=== PATIENT | female | born 1980 | race Caucasian/White ===

== ENCOUNTER 2018-04-29 15:50 | Inpatient (IN) ==
[2018-04-29] MEDS ORDERED: Sod Chloride 0.9% Inj 1,000 ML IV.SIG ONE (16:21)
[2018-04-29] MEDS ORDERED: Morphine Inj 4 MG/ML Vial IV.PUSH ONE (16:21)
[2018-04-29] MEDS ORDERED: Ketorolac Inj 30 MG/ML (IVP) Vial IV.PUSH ONE (16:24)
[2018-04-29] MEDS ORDERED: Levofloxacin 500 mg Premix Inj 500 MG/100 ML PIGGYBACK IV.SIG ONE (16:29)
--- NOTE | 2018-04-29 16:29 | ED ---
HPI General Chief complaint: Urogenital-Female Stated complaint: L lower back pain Time Seen by Provider: 04/29/18 16:19 Source: patient Mode of arrival: ambulatory Limitations: no limitations History of Present Illness MD Complaint: Reports dysuria Onset (ago): day(s) Female Urogenital Radiation: Reports L Flank Severity: moderate Quality: Dull Duration: constant Relieving factors: none Exacerbating factors: none Urinary symptoms: Reports Dysuria and Flank Pain Vaginal discharge: Denies blood Sexual activity: Yes Patient : No Date of Last Menstrual Period: 04/27/18 Associated symptoms: Reports denies other symptoms and fever/chills; Denies vaginal discharge, vaginal bleeding, abdominal pain and headaches Related Data Home Medications Medication Instructions Recorded Confirmed albuterol sulfate 1 puff INHALATION Q4-6H PRN 04/29/18 04/29/18 albuterol sulfate 1.25 mg INHALATION Q4-6H PRN 04/29/18 04/29/18 alprazolam [Xanax] 0.25 mg PO HS 04/29/18 04/29/18 budesonide-formoterol [Symbicort] 2 puff INHALATION Q12H PRN 04/29/18 04/29/18 Allergies Allergy/AdvReac Type Severity Reaction Status Date / Time hydrocodone AdvReac Severe Nausea/Vomi Verified 04/29/18 15:58 ting ONIONS Allergy Severe SOB Uncoded 04/04/06 15:39 Review of Systems ROS: all other systems reviewed are negative PMFSH Medical History Medical History Anxiety (Acute) Asthma (Acute) History of renal stone (Acute) Insomnia (Acute) Surgical History Surgical History Hx of section (Acute) Hx of tubal ligation (Acute) Social History Social History Substance History: No History of Abuse Second Hand Smoke Exposure: No Smoking Status: Heavy tobacco smoker Tobacco Type: Cigarettes How Often Do You Have a Drink Containing Alcohol: Never Recent Travel in [place] within the Last 8 Weeks: No Recent Out of Country Travel within the Last 8 Weeks: No Immunization History Tetanus Immunization: <5 Years Exam Narrative Exam Narrative: Looks sick EOMI, anicteric NO JVD NON LABORED RESPIRATIONS, equal bilateral Tachycardia/pain SOFT NON TENDER No pulsatile mass No rebound or guarding CVA tenderness left PELVIS STABLE FROM EXTREMITIES NO LOWER EXTREMITY EDEMA FACIAL SYMMETRY STEADY GAIT, CLEAR SENTENCES AAOX3 Course Reevaluation(s) Reevaluation #1: No signs of acute airway compromise Updated father bedside Blood pressure trended down after morphine, blood cultures drawn jory nguyễn md to admit/assume care Time: 17:29 Initial Documented Vital Signs Temperature 99.7 F H 04/29/18 15:53 Pulse Rate 122 H 04/29/18 15:53 Respiratory Rate 18 04/29/18 15:53 Blood Pressure 106/62 04/29/18 15:53 Pulse Oximetry 99 04/29/18 15:53 Last Documented Vital Signs Temperature 99.7 F H 04/29/18 15:53 Pulse Rate 115 H 04/29/18 17:10 Respiratory Rate 16 04/29/18 17:14 Blood Pressure 87/56 L 04/29/18 17:10 Pulse Oximetry 97 04/29/18 17:10 Critical Care Time Critical Care Time: Yes Total Critical Care Time: 35 Attestation: Aggregate critical care time was 35 minutes. Time to perform other separately billable procedures was not included in the critical care time. My time did not include minutes spent treating any other patients simultaneously or on activities that did not directly contribute to the patient's treatment. The services I provided to this patient were to treat and/or prevent clinically significant deterioration that could result in: [Pain, disability, ] I provided critical care services requiring my management, as noted below: Chart data review, documentation time, medication orders and management, vital sign assessments/reviewing monitor data, ordering and reviewing lab tests, ordering and interpreting/reviewing x-rays and diagnostic studies, care of the patient and discussion of the patient with the admitting physicians. Medical Decision Making [facility] Narrative Medical Screen Exam Complete: Yes Emergency Medical Condition: Yes Lab Data Result diagrams: 04/29/18 16:35 04/29/18 16:35 POC Results POC Urine Results Negative Lab Results 04/29/18 04/29/18 04/29/18 Range/Units 16:35 16:35 16:35 CBC w Diff Slide review pending WBC 21.4 H (4.0-11.0) th/mm3 RBC 3.95 L (4.00-5.30) mil/mm3 Hgb 11.7 (11.6-15.3) gm/dL Hct 34.8 L (35.0-46.0) % MCV 88.3 (80.0-100.0) fL MCH 29.8 (27.0-34.0) pg MCHC 33.7 (32.0-36.0) % RDW 13.0 (11.6-17.2) % Plt Count 318 (150-450) th/mm3 MPV 7.8 (7.0-11.0) fL Neut % (Auto) 79.3 H (16.0-70.0) % Lymph % (Auto) 10.8 (9.0-44.0) % [place] % (Auto) 7.6 (0.0-8.0) % Eos % (Auto) 0.1 (0.0-4.0) % Baso % (Auto) 2.2 H (0.0-2.0) % Neut # (Auto) 17.0 H (1.8-7.7) th/mm3 Lymph # (Auto) 2.3 (1.0-4.8) th/mm3 [place] # (Auto) 1.6 H (0.0-0.9) th/mm3 Eos # (Auto) 0.0 (0.0-0.4) th/mm3 Baso # (Auto) 0.5 H (0.0-0.2) th/mm3 WBC Differential . Diff Scan Auto diff confirmed Differential Comment . Sodium 133 L (136-145) meq/L Potassium 3.8 (3.5-5.1) meq/L Chloride 101 (98-107) meq/L Carbon Dioxide 26.3 (21.0-32.0) meq/L Anion Gap 6 (5-15) meq/L BUN 11 (7-18) mg/dL Creatinine 1.00 (0.50-1.00) mg/dL Estimated GFR 62 L (>89) mL/min Random Glucose 120 H (74-106) mg/dL Calcium 8.0 L (8.5-10.1) mg/dL Total Bilirubin 0.4 (0.2-1.0) mg/dL AST 13 L (15-37) U/L ALT 15 (10-53) U/L Alkaline Phosphatase 85 (45-117) U/L Total Protein 6.6 (6.4-8.2) g/dL Albumin 2.9 L (3.4-5.0) g/dL Lipase 106 (73-393) U/L Ur Collection Type Clean catch Urine Color Yellow (Yellw/Straw) Urine Clarity Slightly cloudy (Clear) Urine pH 6.0 (5.0-8.5) Ur Specific [place] 1.015 (1.002-1.035) Urine Protein 30 H (Neg-Trace) mg/dL Urine Glucose (UA) 100 H (Negative) mg/dL Urine Ketones Negative (Negative) mg/dL Urine Occult Blood Large H (Negative) Urine Nitrate Positive H (Negative) Urine Bilirubin Negative (Negative) Urine Urobilinogen 0.2 (Less than 2) mg/dL Ur Leukocyte Esterase Moderate H (Negative) Urine RBC 4-15 H (0-3) /hpf Urine WBC 51-189 H (0-5) /hpf Urine WBC Clumps Few H (None) Ur Squamous Epith Cells 0-5 (0-5) /hpf Urine Bacteria Many H (None) /hpf Micro UA Comment Culture indicated Ur Microscopic Review Microscopic reviewed Urine Culture Comments Culture indicated Imaging Data Radiologist's impression: Abdomen/Pelvis CT 04/29/18 16:21 CONCLUSION: 1. Mild obstructive uropathy on the left leading to a distal left ureteral calculus measuring 2 mm. 2. Several punctate nonobstructing right-sided renal calculi. Discharge Plan Discharge Disposition Patient Disposition: ED Admit(ED Internal Use Only) Discharge Condition Condition: Stable Discharge Order Discharge Orders: ED Use Only Admit Order (Routine); Ordered 04/29/18 Ordered By: Yovanny Oliveros Discharge Details Diagnosis: Pyelonephritis Physicians Team ED Provider: Yovanny Oliveros Primary Care Provider: Caleb Perez Rxs /Orders / Referrals /Forms Prescriptions: No Action albuterol sulfate 1.25 mg/3 mL Solution For Nebulization 1.25 mg INHALATION Q4-6H PRN (Reason: Shortness Of Breath) RF: 0 alprazolam [Xanax] 0.25 mg Tablet 0.25 mg PO HS RF: 0 albuterol sulfate 90 mcg/actuation Hfa Aerosol Inhaler 1 puff INHALATION Q4-6H PRN (Reason: Shortness Of Breath) RF: 0 budesonide-formoterol [Symbicort] 80-4.5 mcg/actuation Hfa Aerosol Inhaler 2 puff INHALATION Q12H PRN (Reason: Shortness Of Breath) RF: 0 Discharge Interventions Interventions: Vital Signs Last Done: 04/29/18 17:10 Status ED Status: Ready for Discharge
[2018-04-29 16:42] LABS: Bilirubin,Urine Negative (Negative); Clarity,Urine Slightly Cloudy (Clear); Color,Urine Yellow (Yellw/Straw); Glucose,Urine (UA) 100 mg/dL (Negative); Leukocyte Esterase,Urine Moderate (Negative); Nitrite,Urine Positive (Negative); Specific Gravity,Urine 1.015 (1.002-1.035); Urobilinogen,Urine 0.2 mg/dL (Less than 2)
[2018-04-29 16:43] LABS: Baso # (Auto) 0.5 th/mm3 (0.0-0.2); Baso % (Auto) 2.2 % (0.0-2.0); Eos % (Auto) 0.1 % (0.0-4.0); Hematocrit 34.8 % (35.0-46.0); Hemoglobin 11.7 gm/dL (11.6-15.3); Lymph # (Auto) 2.3 th/mm3 (1.0-4.8); Lymph % (Auto) 10.8 % (9.0-44.0); Mean Corpuscular HGB Conc 33.7 % (32.0-36.0); Mean Corpuscular Hemoglobin 29.8 pg (27.0-34.0); Mean Corpuscular Volume 88.3 fL (80.0-100.0); Mean Platelet Volume 7.8 fL (7.0-11.0); Mono # (Auto) 1.6 th/mm3 (0.0-0.9); Mono % (Auto) 7.6 % (0.0-8.0); Neut % (Auto) 79.3 % (16.0-70.0); Platelet Count 318 th/mm3 (150-450); Red Blood Count 3.95 mil/mm3 (4.00-5.30); White Blood Count 21.4 th/mm3 (4.0-11.0)
[2018-04-29 16:47] LABS: Bacteria,Urine Many /hpf; Squamous Epithelial Cell,Urine 0-5 /hpf (0-5); WBC,Urine 51-189 /hpf (0-5)
[2018-04-29 16:51] LABS: Chloride 101 meq/L (98-107); Potassium 3.8 meq/L (3.5-5.1); Sodium 133 meq/L (136-145)
[2018-04-29 16:55] LABS: Albumin 2.9 g/dL (3.4-5.0); Anion Gap 6 meq/L (5-15); Blood Urea Nitrogen 11 mg/dL (7-18); Carbon Dioxide 26.3 meq/L (21.0-32.0); Glucose,Random 120 mg/dL (74-106); Lipase 106 U/L (73-393)
[2018-04-29 16:58] LABS: Alanine Aminotransferase 15 U/L (10-53); Aspartate Aminotransferase 13 U/L (15-37); Glomerular Filtration Rate 62 mL/min (>89)
[2018-04-29 16:59] LABS: Total Protein 6.6 g/dL (6.4-8.2)
[2018-04-29 17:01] LABS: Alkaline Phosphatase 85 U/L (45-117)
--- NOTE | 2018-04-29 17:06 | CT ---
EXAM DATE: 04/29/2018 5:01 PM EST AGE/SEX: 37 years / Female INDICATIONS: Left flank pain with dysuria 3 days CLINICAL DATA: This is the patient's initial encounter. Patient reports that signs and symptoms have been present for 3 days and indicates a pain score of 7/10. MEDICAL/SURGICAL HISTORY: Renal calculi. Asthma. section. Tubal ligation. RADIATION DOSE: 4.15 CTDI (mGy) COMPARISON: [facility], CT ABDOMEN & PELVIS W CONTRAST, 06/07/2011. . TECHNIQUE: Multiple contiguous axial images were obtained through the abdomen. Images were obtained using multiple row detector helical technique. Using automated exposure control and adjustment of the mA and/or kV according to patient size, radiation dose was kept as low as reasonably achievable to o btain optimal diagnostic quality images. DICOM format image data is available electronically for rev iew and comparison. FINDINGS: Lower Lungs: The visualized lower lungs are clear. Liver: The liver has a homogeneous density without space-occupying lesion. There is no dilation of th e biliary tree. Spleen: Homogeneous density without enlargement. Pancreas: Unremarkable without mass or calcification. Kidneys: Normal in size and shape. No evidence of mass or hydronephrosis on the right. Several punct ate nonobstructing right-sided renal calculi measures 1 to 2 mm in the lower pole. Mild hydronephrosi s and hydroureter on the left leading to a distal left ureteral calculus measuring 2 mm. Adrenal Glands: Unremarkable. Aorta: The aorta and proximal iliac vessels are grossly unremarkable without aneurysmal dilation. Bowel/Mesentery: The bowel loops are grossly unremarkable. The cecum and sigmoid colon have a normal configuration. Abdominal Wall: Intact. Retroperitoneum: No evidence of adenopathy in the retrocrural, para-aortic, or deep pelvic regions. Bladder: Contours are smooth. Reproductive Organs: No abnormal masses or calcifications seen. Inguinal: The inguinal region is unremarkable without evidence of adenopathy. Bony Structures: Unremarkable. CONCLUSION: 1. Mild obstructive uropathy on the left leading to a distal left ureteral calculus measuring 2 mm. 2. Several punctate nonobstructing right-sided renal calculi. Electronically signed by: Remberto Whitney MD Board Certified Radiologist 04/29/2018 5:04 PM EST
[2018-04-29] MEDS ORDERED: Sod Chloride 0.9% Inj 1,000 ML IV.SIG SCH ×2 (17:15→19:00)
[2018-04-29] MEDS ORDERED: Acetaminophen 325 MG Tablet PO PRN (17:30)
[2018-04-29] MEDS ORDERED: Vancomycin Inj 1,000 MG in Sodium Chlor 0.9% Inj 250 ML IV.SIG SCH (17:39)
[2018-04-29] MEDS ORDERED: Vancomycin Consult Pharmacy OTHER PRN (18:00)
[2018-04-29] MEDS: Sod Chloride 0.9% Inj 1,000 ML IV.CONT SCH (18:17)
[2018-04-29] MEDS ORDERED: ALPRAZolam 0.25 MG Tablet PO PRN (19:16)
[2018-04-29] MEDS: Lactobacillus Acidophilus/L. Spores Tablet PO SCH (20:01)
[2018-04-29] MEDS: HYDROmorphone PF Inj 1 MG/ML Ampul IV.PUSH PRN (20:01)
[2018-04-29] MEDS: oxyCODONE/Acetaminophen 10/325 Tablet PO PRN (20:06)
[2018-04-29] MEDS: Vancomycin Inj 750 MG in Sodium Chlor 0.9% Inj 250 ML IV.SIG SCH (20:24)
[2018-04-30] MEDS ORDERED: Sod Chloride 0.9% Inj 1,000 ML IV.SIG ONE (00:03)
[2018-04-30] MEDS: oxyCODONE/Acetaminophen 10/325 Tablet PO PRN ×4 (00:11→18:09)
[2018-04-30] MEDS: HYDROmorphone PF Inj 1 MG/ML Ampul IV.PUSH PRN ×4 (02:19→20:11)
[2018-04-30] MEDS: Sod Chloride 0.9% Inj 1,000 ML IV.CONT SCH ×2 (04:49→15:38)
[2018-04-30 06:00] LABS: Baso % (Auto) 0.3 % (0.0-2.0); Eos % (Auto) 0.3 % (0.0-4.0); Hematocrit 29.8 % (35.0-46.0); Hemoglobin 10.1 gm/dL (11.6-15.3); Lymph % (Auto) 6.4 % (9.0-44.0); Mean Corpuscular HGB Conc 33.9 % (32.0-36.0); Mean Corpuscular Hemoglobin 29.8 pg (27.0-34.0); Mean Platelet Volume 7.5 fL (7.0-11.0); Mono # (Auto) 1.1 th/mm3 (0.0-0.9); Mono % (Auto) 7.5 % (0.0-8.0); Neut # (Auto) 13.1 th/mm3 (1.8-7.7); Neut % (Auto) 85.5 % (16.0-70.0); Platelet Count 262 th/mm3 (150-450); Red Blood Count 3.38 mil/mm3 (4.00-5.30); Red Cell Distribution Width 12.9 % (11.6-17.2); White Blood Count 15.2 th/mm3 (4.0-11.0)
[2018-04-30 06:25] LABS: Albumin 2.3 g/dL (3.4-5.0); Calcium 6.9 mg/dL (8.5-10.1); Carbon Dioxide 19.5 meq/L (21.0-32.0); Potassium 3.8 meq/L (3.5-5.1); Total Protein 5.4 g/dL (6.4-8.2)
[2018-04-30] MEDS: Lactobacillus Acidophilus/L. Spores Tablet PO SCH ×3 (08:39→18:09)
[2018-04-30] MEDS: Vancomycin Inj 750 MG in Sodium Chlor 0.9% Inj 250 ML IV.SIG SCH ×2 (09:24→20:12)
[2018-04-30] MEDS: Levofloxacin 500 mg Premix Inj 500 MG/100 ML PIGGYBACK IV.SIG SCH (17:00)
[2018-04-30] MEDS ORDERED: Budesonide-Formoterol 80/4.5 MCG 6.9 GM Inhaler INH PRN (19:41)
--- NOTE | 2018-04-30 19:43 | P.HPIM ---
History of Present Illness Primary Care Physician: Caleb Perez MD Chief Complaint: Pyelonephritis History of Present Illness: Mrs. Martinez is a 37-year-old female. She came into the hospital secondary to dysuria and flank pain. Findings at time of admit are leukocytosis, tachycardia, hypotension, and fever. She has a retained 2 mm kidney stone in the left ureter. Additionally she has evidence for pyelonephritis. Septic criteria are present and patient meets criteria for septic shock. Pressors are needed to maintain patient's blood pressures. No other complaints. She does not have recurrent problems with urinary tract infections. She does have a history of kidney stone. Other medical history includes anxiety and asthma. Inpatient Certification Inpatient Certification: I certify that the inpatient services were ordered in accordance with Medicare regulations governing the order. This includes certification that hospital inpatient services are reasonable and necessary and in the case of services not specified as inpatient-only under 42 CFR 419.22(n), that they are appropriately provided as inpatient services in accordance to with the 2-midnight benchmark under 43 CFR 412.3(e) Estimated Total Length of Stay (Days): 3 Plans for Post Hospital Care: Home Review of Systems Constitutional: No fevers, no chills no night sweats, no fatigue, no weakness Eyes: No eye pain, no blurry vision, no loss of vision ENT: No sore throat, no ear pain, no rhinorrhea Cardiovascular: No chest pain, no tachycardia, no palpitations, no syncope Respiratory: No wheezing, no cough, no shortness of breath Gastrointestinal: No abdominal pain, no black tarry stools, no bright red blood per rectum, no vomiting, no diarrhea Musculoskeletal: No joint pain, no muscle cramps, no stiffness, back pain Integumentary: No rash, no ulcers, no drainage Neurologic: No sensory loss, no loss of motor function, no dizziness Psychiatric: No behavioral changes, no hallucinations, no suicidal ideations Genitourinary: Dysuria PMFSH Medical History Medical History Anxiety (Acute) Asthma (Acute) History of renal stone (Acute) Insomnia (Acute) Surgical History Surgical History Hx of section (Acute) Hx of tubal ligation (Acute) Family History Family History Other Osteoarthritis Social History Social History Substance History: No History of Abuse Second Hand Smoke Exposure: No Smoking Status: Current every day smoker Tobacco Type: Cigarettes How Often Do You Have a Drink Containing Alcohol: Never Recent Travel in [facility] within the Last 8 Weeks: No Recent Out of Country Travel within the Last 8 Weeks: No Immunization History Tetanus Immunization: <5 Years Medications and Allergies Allergies Allergy/AdvReac Type Severity Reaction Status Date / Time hydrocodone AdvReac Severe Nausea/Vomi Verified 04/29/18 15:58 ting ONIONS Allergy Severe SOB Uncoded 04/04/06 15:39 Home Medications Medication Instructions Recorded Confirmed Type albuterol sulfate 1 puff INHALATION Q4-6H PRN 04/29/18 04/29/18 History albuterol sulfate 1.25 mg INHALATION Q4-6H PRN 04/29/18 04/29/18 History alprazolam [Xanax] 0.25 mg PO HS 04/29/18 04/29/18 History budesonide-formoterol [Symbicort] 2 puff INHALATION Q12H PRN 04/29/18 04/29/18 History Active Medications: Active Medications Acetaminophen (Tylenol) 650 mg PO Q4H PRN PRN Reason: Temp > 100.4 Last Admin: 04/30/18 05:00 Dose: 650 mg Al Hydroxide/Mg Hydroxide (Milk Of Dinora Kang) 30 ml PO Q12H PRN PRN Reason: Mild Constipation Albuterol (Albuterol Neb (Prn)) 1.25 mg NEB Q4HR NEB PRN PRN Reason: Shortness Of Breath Alprazolam (Xanax) 0.25 mg PO HS PRN PRN Reason: INSOMNIA Hydromorphone HCl (Dilaudid Pf Inj) 1 mg IV.PUSH Q4H PRN PRN Reason: BREAKTHROUGH PAIN Last Admin: 04/30/18 15:37 Dose: 1 mg Sodium Chloride (Ns Inj) 1,000 mls @ 100 mls/hr IV.CONT .Q10H DONG Last Admin: 04/30/18 15:38 Dose: 100 mls/hr Levofloxacin/Dextrose (Levaquin 500 Mg Premix Inj) 500 mg in 100 mls @ 100 mls/ hr IV.SIG Q24H DONG Last Infusion: 04/30/18 18:00 Dose: Infused Vancomycin HCl 750 mg/ Sodium (Chloride) 257.5 mls @ 250 mls/hr IV.SIG Q12H DONG Last Infusion: 04/30/18 10:26 Dose: Infused Norepinephrine Bitartrate (Levophed-Dextrose 4 Mg/250 Ml Drip) 4 mg in 250 mls @ 7.5 mls/hr IV.SIG TITRATE PRN; Protocol PRN Reason: Per Protocol Last Admin: 04/30/18 16:29 Dose: 4 mcg/min, 15 mls/hr Lactobacillus Acidophilus (Lactinex) 1 tab PO TID [facility] Last Admin: 04/30/18 18:09 Dose: 1 tab Miscellaneous Information ([facility] Ordered Lab Info) 0 each OTHER ONCE ONE Stop: 05/01/18 07:46 Ondansetron HCl (Zofran Inj) 4 mg IV.PUSH Q6H PRN PRN Reason: NAUSEA OR VOMITING Oxycodone/Acetaminophen (Percocet 10/325 Mg) 1 tab PO Q4H PRN PRN Reason: Pain 7 to 10 Last Admin: 04/30/18 18:09 Dose: 1 tab Oxycodone/Acetaminophen (Percocet 5/325 Mg) 1 tab PO Q4H PRN PRN Reason: Pain 3 to 6 Pharmacy Profile Note (Vancomycin Consult Pharmacy) 1 each OTHER UNSCH PRN PRN Reason: Pharmacy to dose Sodium Chloride (Ns Flush) 2 ml IV.FLUSH BID [facility] Last Admin: 04/30/18 08:39 Dose: 2 ml Sodium Chloride (Ns Flush) 2 ml IV.FLUSH PRN PRN PRN Reason: FLUSH AFTER USING IV ACCESS Tamsulosin HCl (Flomax) 0.4 mg PO DAILY [facility] Last Admin: 04/30/18 08:39 Dose: 0.4 mg Terbutaline Sulfate (Brethine Inj) 1 mg SQ UNSCH PRN PRN Reason: For Extravasation Physical Exam Vital signs: Vital Signs 04/29/18 19:47 04/29/18 20:00 04/29/18 20:04 Temperature 100.1 F H Pulse Rate 108 H 112 H 112 H Respiratory Rate 27 H 26 H Blood Pressure 67/40 L Pulse Oximetry 04/29/18 20:15 04/29/18 20:30 04/29/18 20:45 Temperature Pulse Rate 116 H 120 H Respiratory Rate 27 H 24 Blood Pressure 92/60 L 83/56 L 94/44 L Pulse Oximetry 04/29/18 21:00 04/29/18 21:05 04/29/18 21:10 Temperature Pulse Rate 122 H 120 H Respiratory Rate 25 H 24 Blood Pressure 87/48 L 83/45 L Pulse Oximetry 04/29/18 21:15 04/29/18 21:39 04/29/18 21:45 Temperature Pulse Rate 108 H 116 H 114 H Respiratory Rate 24 22 21 Blood Pressure 83/54 L Pulse Oximetry 04/29/18 22:00 04/29/18 22:09 04/29/18 22:15 Temperature Pulse Rate 108 H 106 H 102 H Respiratory Rate 18 16 20 Blood Pressure 85/44 L Pulse Oximetry 04/29/18 22:39 04/29/18 22:52 04/29/18 23:00 Temperature Pulse Rate 98 H 92 H 86 Respiratory Rate 15 18 31 H Blood Pressure 80/47 L 80/47 L 80/51 L Pulse Oximetry 04/29/18 23:15 04/29/18 23:30 04/29/18 23:45 Temperature Pulse Rate 88 86 86 Respiratory Rate 19 15 15 Blood Pressure 78/47 L 88/52 L 83/54 L Pulse Oximetry 04/30/18 00:00 04/30/18 00:15 04/30/18 00:30 Temperature Pulse Rate 82 86 86 Respiratory Rate 16 15 15 Blood Pressure 83/58 L 72/49 L 71/49 L Pulse Oximetry 04/30/18 00:45 04/30/18 01:00 04/30/18 01:15 Temperature Pulse Rate 84 90 Respiratory Rate 16 9 L Blood Pressure 69/45 L 91/55 L 78/53 L Pulse Oximetry 04/30/18 01:27 04/30/18 01:33 04/30/18 01:45 Temperature Pulse Rate 100 H 82 88 Respiratory Rate 31 H 26 H 18 Blood Pressure 102/70 103/66 Pulse Oximetry 04/30/18 02:00 04/30/18 02:15 04/30/18 02:30 Temperature Pulse Rate 88 96 H 100 H Respiratory Rate 20 19 14 Blood Pressure 102/69 99/66 L 102/66 Pulse Oximetry 04/30/18 02:45 04/30/18 03:00 04/30/18 03:15 Temperature Pulse Rate 100 H 104 H 104 H Respiratory Rate 18 21 25 H Blood Pressure 111/74 109/73 118/77 Pulse Oximetry 04/30/18 03:30 04/30/18 03:45 04/30/18 04:00 Temperature 101.3 F H Pulse Rate 106 H 110 H 112 H Respiratory Rate 23 25 H 25 H Blood Pressure 136/80 106/69 109/68 Pulse Oximetry 04/30/18 04:15 04/30/18 04:30 04/30/18 04:45 Temperature Pulse Rate 108 H 104 H 98 H Respiratory Rate 23 20 23 Blood Pressure 102/58 L 101/62 85/55 L Pulse Oximetry 04/30/18 05:00 04/30/18 05:15 04/30/18 05:30 Temperature Pulse Rate 98 H 104 H 100 H Respiratory Rate 19 19 17 Blood Pressure 98/60 L 97/59 L 95/56 L Pulse Oximetry 04/30/18 05:45 04/30/18 06:00 04/30/18 07:00 Temperature Pulse Rate 96 H 90 78 Respiratory Rate 15 15 13 Blood Pressure 85/48 L 83/49 L 90/62 L Pulse Oximetry 04/30/18 08:00 04/30/18 09:00 04/30/18 10:00 Temperature 97.8 F Pulse Rate 76 72 70 Respiratory Rate 14 17 16 Blood Pressure 94/62 L 96/67 L 104/69 Pulse Oximetry 98 04/30/18 11:00 04/30/18 12:00 04/30/18 12:01 Temperature 98.9 F Pulse Rate 80 78 74 Respiratory Rate 13 14 14 Blood Pressure 103/66 108/75 112/72 Pulse Oximetry 96 04/30/18 12:12 04/30/18 13:00 04/30/18 14:00 Temperature 98.9 F Pulse Rate 77 106 H 88 Respiratory Rate 16 28 H 20 Blood Pressure 108/75 93/59 L 102/70 Pulse Oximetry 04/30/18 15:00 04/30/18 16:00 04/30/18 16:01 Temperature Pulse Rate 98 H 100 H Respiratory Rate 20 Blood Pressure 101/69 110/70 Pulse Oximetry 04/30/18 16:15 04/30/18 16:30 04/30/18 16:49 Temperature Pulse Rate 108 H 92 H 114 H Respiratory Rate 25 H 21 22 Blood Pressure Pulse Oximetry 04/30/18 17:00 04/30/18 17:01 04/30/18 18:00 Temperature Pulse Rate 106 H 110 H 108 H Respiratory Rate 27 H 24 23 Blood Pressure 117/69 93/58 L Pulse Oximetry 98 Intake & Output 04/30/18 04/30/18 05/01/18 06:59 18:59 06:59 Intake Total 1857.5 / 1857.5 2567.5 / 2567.5 Output Total 460 / 460 1300 / 1300 Balance 1397.5 / 1397.5 1267.5 / 1267.5 Weight 64.3 kg Intake: IV 1857.5 / 1857.5 1607.5 / 1607.5 NS Inj 1,000 ML @ 100 mls/hr IV 1100 / 1100 1000 / 1000 .CONT .Q10H DONG Rx#:[id number] Levaquin 500 mg Premix Inj 500 100 / 100 mg In 100 ml @ 100 mls/hr IV. SIG Q24H DONG Rx#:[id number] Levophed-Dextrose 4 mg/250 ml 250 / 250 Drip 4 mg In 250 ml @ 2 MCG/MIN 7.5 mls/hr IV.SIG TITRATE PRN Rx#:[id number] NS Inj 1,000 ML @ 1000 mls/hr 500 / 500 IV.SIG BOLUS DONG Rx#:[id number] Vancomycin Inj 750 MG In NS Inj 257.5 / 257.5 257.5 / 257.5 250 ML @ 250 mls/hr IV.SIG Q12H DONG Rx#:[id number] Oral 960 / 960 Output: Urine 460 / 460 1300 / 1300 Other: # Voids 4 2 Date of Last Bowel Movement 04/29/18 Narrative: GENERAL: NAD, A&Ox3 HEAD: Normocephalic. NECK: Supple, trachea midline. No lymphadenopathy. EYES: No scleral icterus. No injection or drainage. CARDIOVASCULAR: Regular rate and rhythm without murmurs, gallops, or rubs. RESPIRATORY: Breath sounds equal bilaterally. No accessory muscle use. GASTROINTESTINAL: Abdomen soft, non-tender, nondistended. MUSCULOSKELETAL: No cyanosis, or edema. Bilateral costovertebral angle tenderness. SKIN: Warm and dry. NEURO: No focal neurological deficits. Results Labs CBC & Chem 7: 04/30/18 05:44 04/30/18 05:44 Caprini VTE Risk Assessment Caprini VTE Risk Assessment: No/Low Risk (score <= 1) Caprini Risk Assessment Model: Point Value = 1 Point Value = 2 Point Value = 3 Point Value = 5 Age 41-60 Minor surgery BMI > 25 kg/m2 Swollen legs Varicose veins or History of unexplained or recurrent spontaneous Oral contraceptives or hormone replacement Sepsis (< 1 month) Serious lung disease, including pneumonia (< 1 month) Abnormal pulmonary function Acute myocardial infarction Congestive heart failure (< 1 month) History of inflammatory bowel disease Medical patient at bed rest Age 61-74 Arthroscopic surgery Major open surgery (> 45 min) Laparoscopic surgery (> 45 min) Malignancy Confined to bed (> 72 hours) Immobilizing plaster cast Central venous access Age >= 75 History of VTE Family history of VTE Factor V Leiden Prothrombin [id number] Lupus anticoagulant Anticardiolipin antibodies Elevated serum homocysteine Heparin-induced thrombocytopenia Other congenital or acquired thrombophilia Stroke (< 1 month) Elective arthroplasty Hip, pelvis, or leg fracture Acute spinal cord injury (< 1 month) Prophylaxis Regimen: Total Risk Factor Score Risk Level Prophylaxis Regimen 0-1 Low Early ambulation 2 Moderate Order ONE of the following: *Sequential Compression Device (SCD) *Heparin 5000 units SQ BID 3-4 Higher Order ONE of the following medications: *Heparin 5000 units SQ TID *Enoxaparin/Lovenox 40 mg SQ daily (WT < 150 kg, CrCl > 30 mL/min) *Enoxaparin/Lovenox 30 mg SQ daily (WT < 150 kg, CrCl > 10-29 mL/min) *Enoxaparin/Lovenox 30 mg SQ BID (WT < 150 kg, CrCl > 30 mL/min) AND/OR *Sequential Compression Device (SCD) 5 or more Highest Order ONE of the following medications: *Heparin 5000 units SQ TID (Preferred with Epidurals) *Enoxaparin/Lovenox 40 mg SQ daily (WT < 150 kg, CrCl > 30 mL/min) *Enoxaparin/Lovenox 30 mg SQ daily (WT < 150 kg, CrCl > 10-29 mL/min) *Enoxaparin/Lovenox 30 mg SQ BID (WT < 150 kg, CrCl > 30 mL/min) AND *Sequential Compression Device (SCD) Assessment and Plan Plan 37-year-old female admitted secondary to pyelonephritis with septic shock Septic shock Sepsis Tachycardia Fever Leukocytosis Hypotension Admit to ICU Levophed to maintain blood pressures Follow vital signs closely Following telemetry IV hydration Wean pressors as tolerated Pyelonephritis Left-sided ureterolith 2 mm stone Flomax Stone likely to pass Repeat imaging Follow clinically Treat infection to decrease inflammation Consider urology consult if repeat imaging shows no movement of stone Asthma As needed albuterol Continue Symbicort Anxiety Xanax as needed DVT prophylaxis SCDs H&P: Quality VTE Deep Vein Thrombosis/Pulmonary Embolism Present on Admission: No
[2018-04-30] MEDS ORDERED: Morphine Sulfate 15 MG IR Tablet PO PRN (19:50)
[2018-05-01] MEDS: HYDROmorphone PF Inj 1 MG/ML Ampul IV.PUSH PRN ×2 (01:25→08:54)
[2018-05-01] MEDS: Sod Chloride 0.9% Inj 1,000 ML IV.CONT SCH ×3 (01:31→18:30)
[2018-05-01] MEDS ORDERED: VANCOMYCIN TROUGH OTHER ONE (07:45)
[2018-05-01 08:33] LABS: Baso % (Auto) 0.3 % (0.0-2.0); Eos # (Auto) 0.1 th/mm3 (0.0-0.4); Eos % (Auto) 0.7 % (0.0-4.0); Hematocrit 31.3 % (35.0-46.0); Hemoglobin 10.7 gm/dL (11.6-15.3); Lymph # (Auto) 1.5 th/mm3 (1.0-4.8); Lymph % (Auto) 14.6 % (9.0-44.0); Mean Corpuscular HGB Conc 34.3 % (32.0-36.0); Mean Corpuscular Hemoglobin 30.2 pg (27.0-34.0); Mean Platelet Volume 8.1 fL (7.0-11.0); Mono # (Auto) 0.8 th/mm3 (0.0-0.9); Mono % (Auto) 8.1 % (0.0-8.0); Neut # (Auto) 7.6 th/mm3 (1.8-7.7); Neut % (Auto) 76.3 % (16.0-70.0); Platelet Count 283 th/mm3 (150-450); Red Blood Count 3.55 mil/mm3 (4.00-5.30); Red Cell Distribution Width 12.7 % (11.6-17.2)
[2018-05-01 08:41] LABS: Chloride 109 meq/L (98-107); Potassium 3.7 meq/L (3.5-5.1); Sodium 139 meq/L (136-145)
[2018-05-01] MEDS: Vancomycin Inj 750 MG in Sodium Chlor 0.9% Inj 250 ML IV.SIG SCH (08:54)
[2018-05-01] MEDS: Lactobacillus Acidophilus/L. Spores Tablet PO SCH ×3 (08:54→18:29)
[2018-05-01 09:11] LABS: Alanine Aminotransferase 80 U/L (10-53); Albumin 2.3 g/dL (3.4-5.0); Alkaline Phosphatase 127 U/L (45-117); Anion Gap 6 meq/L (5-15); Aspartate Aminotransferase 39 U/L (15-37); Blood Urea Nitrogen 4 mg/dL (7-18); Calcium 7.9 mg/dL (8.5-10.1); Carbon Dioxide 23.6 meq/L (21.0-32.0); Glomerular Filtration Rate Greater Than 89 mL/min (>89); Glucose,Random 105 mg/dL (74-106); Total Protein 5.7 g/dL (6.4-8.2)
--- NOTE | 2018-05-01 10:14 | US ---
EXAM DATE: 05/01/2018 10:01 AM EST AGE/SEX: 37 years / Female INDICATIONS: Left ureteral stone. CLINICAL DATA: This is the patient's initial encounter. Patient reports that signs and symptoms have been present for 3 days and indicates a pain score of 2/10. MEDICAL/SURGICAL HISTORY: Renal calculi. Asthma. Tubal ligation. section. COMPARISON: [facility], CT ABDOMEN & PELVIS W/O CONTRAST, 04/29/2018. . MEASUREMENTS: Right Kidney:__12.7 x 5.0 x 5.6 cm Left Kidney:__13.3 x 6.5 x 5.6 cm FINDINGS: Right Kidney: Normal echogenicity and cortical thickness. Tiny lower pole stone. No mass or hydroneph rosis. Left Kidney: Normal echogenicity and cortical thickness. No mass. There is mild hydronephrosis. Bladder: Within normal limits given the degree of distension. Bilateral ureteral jets are present. Other: Small free fluid, similar to the CT. CONCLUSION: 1. Nonobstructing right lower pole stone. 2. Mild left hydronephrosis suggesting the partially obstructing stone of the distal left ureter per sists. Bilateral ureteral jets are demonstrated Electronically signed by: Caleb Hogue MD Board Certified Radiologist 05/01/2018 10:13 AM EST
--- NOTE | 2018-05-01 10:32 | XR ---
EXAM DATE: 05/01/2018 10:26 AM EST AGE/SEX: 37 years / Female INDICATIONS: Patient has posterior back pain. CLINICAL DATA: This is the patient's subsequent encounter. Patient reports that signs and symptoms h ave been present for 4 - 6 days and indicates a pain score of 8/10. MEDICAL/SURGICAL HISTORY: . Renal calculi. Asthma. section. Tubal ligation . COMPARISON: [facility], CT ABDOMEN & PELVIS W/O CONTRAST, 04/29/2018. [facility], US KIDNEY/RENAL/BLADDER, 04/14. . FINDINGS: The abdominal bowel gas pattern is normal. No abnormal masses, calcifications, or organomegaly is s een. The osseous structures are unremarkable. CONCLUSION: Benign-appearing abdomen. Patient's known renal and distal left ureteral stones are not well visualiz ed radiographically. Electronically signed by: Caleb Hogue MD Board Certified Radiologist 05/01/2018 10:31 AM EST
[2018-05-01] MEDS ORDERED: ALPRAZolam 0.25 MG Tablet PO PRN (13:12)
[2018-05-01] MEDS ORDERED: Zolpidem Tartrate 5 MG Tablet PO PRN (13:12)
--- NOTE | 2018-05-01 15:20 | P.PNIM ---
Subjective Interval history: Patient has some signs of improvement overnight. Pain is about the same. Repeat imaging shows still dilated ureter with hydronephrosis. Clinically patient reports that she did pass a kidney stone. No directly visualized kidney stone is present on ultrasound or X-ray imaging. Today she complains of headache. She also complains of anxiety. She also complains of insomnia. Physical Exam Vital signs: Vital Signs 04/30/18 16:00 04/30/18 16:01 04/30/18 16:15 Temperature Pulse Rate 100 H 108 H Respiratory Rate 25 H Blood Pressure 110/70 Pulse Oximetry 04/30/18 16:30 04/30/18 16:49 04/30/18 17:00 Temperature Pulse Rate 92 H 114 H 106 H Respiratory Rate 21 22 27 H Blood Pressure Pulse Oximetry 04/30/18 17:01 04/30/18 18:00 04/30/18 19:00 Temperature Pulse Rate 110 H 108 H 102 H Respiratory Rate 24 23 7 L Blood Pressure 117/69 93/58 L Pulse Oximetry 98 04/30/18 19:01 04/30/18 19:15 04/30/18 19:36 Temperature Pulse Rate 102 H 110 H 98 H Respiratory Rate 9 L 26 H 19 Blood Pressure 102/66 91/56 L Pulse Oximetry 04/30/18 19:45 04/30/18 20:00 04/30/18 20:15 Temperature Pulse Rate 96 H 88 90 Respiratory Rate 16 18 16 Blood Pressure 105/64 Pulse Oximetry 04/30/18 20:30 04/30/18 20:41 04/30/18 20:45 Temperature Pulse Rate 92 H 94 H Respiratory Rate 13 18 17 Blood Pressure 89/53 L Pulse Oximetry 04/30/18 21:00 04/30/18 21:15 04/30/18 21:30 Temperature Pulse Rate 92 H 86 86 Respiratory Rate 19 13 13 Blood Pressure 85/54 L 94/56 L Pulse Oximetry 04/30/18 21:45 04/30/18 22:00 04/30/18 22:15 Temperature Pulse Rate 82 88 86 Respiratory Rate 12 13 12 Blood Pressure 103/55 L Pulse Oximetry 04/30/18 22:30 04/30/18 22:45 04/30/18 22:59 Temperature Pulse Rate 92 H 92 H 92 H Respiratory Rate 20 20 15 Blood Pressure 109/71 Pulse Oximetry 04/30/18 23:00 04/30/18 23:01 04/30/18 23:15 Temperature Pulse Rate 88 84 Respiratory Rate 14 15 10 L Blood Pressure Pulse Oximetry 04/30/18 23:30 04/30/18 23:45 05/01/18 00:00 Temperature Pulse Rate 88 94 H 90 Respiratory Rate 16 20 15 Blood Pressure 100/69 97/66 L Pulse Oximetry 05/01/18 00:15 05/01/18 00:30 05/01/18 00:45 Temperature Pulse Rate 94 H 98 H 100 H Respiratory Rate 16 12 15 Blood Pressure 103/68 Pulse Oximetry 05/01/18 01:00 05/01/18 01:15 05/01/18 01:17 Temperature Pulse Rate 98 H 96 H 96 H Respiratory Rate 21 18 17 Blood Pressure 100/63 Pulse Oximetry 05/01/18 01:30 05/01/18 01:45 05/01/18 02:00 Temperature Pulse Rate 98 H 102 H 102 H Respiratory Rate 18 17 16 Blood Pressure 100/56 L 111/69 Pulse Oximetry 05/01/18 02:15 05/01/18 02:30 05/01/18 02:45 Temperature Pulse Rate 106 H 94 H 88 Respiratory Rate 25 H 15 15 Blood Pressure 95/65 L Pulse Oximetry 05/01/18 03:00 05/01/18 03:15 05/01/18 03:30 Temperature Pulse Rate 90 86 88 Respiratory Rate 17 14 16 Blood Pressure 96/64 L 98/65 L Pulse Oximetry 05/01/18 03:45 05/01/18 04:00 05/01/18 04:15 Temperature Pulse Rate 90 87 88 Respiratory Rate 15 16 17 Blood Pressure 86/51 L Pulse Oximetry 05/01/18 04:30 05/01/18 04:45 05/01/18 05:00 Temperature Pulse Rate 90 84 82 Respiratory Rate 17 18 20 Blood Pressure 85/57 L 107/65 Pulse Oximetry 05/01/18 05:15 05/01/18 05:30 05/01/18 05:41 Temperature Pulse Rate 82 88 Respiratory Rate 20 18 20 Blood Pressure 103/60 Pulse Oximetry 05/01/18 05:45 05/01/18 06:00 05/01/18 06:11 Temperature Pulse Rate 90 86 Respiratory Rate 25 H 20 15 Blood Pressure Pulse Oximetry 05/01/18 06:15 02/18/19 07:00 05/01/18 07:30 Temperature Pulse Rate 82 76 76 Respiratory Rate 20 19 16 Blood Pressure 125/97 H 106/70 115/79 Pulse Oximetry 05/01/18 08:00 05/01/18 09:00 05/01/18 09:45 Temperature 97.9 F Pulse Rate 74 82 68 Respiratory Rate 18 19 22 Blood Pressure 115/66 97/62 L 83/57 L Pulse Oximetry 98 05/01/18 10:00 05/01/18 11:00 05/01/18 12:00 Temperature 99.4 F Pulse Rate 72 74 70 Respiratory Rate 13 17 16 Blood Pressure 106/77 110/75 101/60 Pulse Oximetry 97 05/01/18 12:14 Temperature 99.4 F Pulse Rate Respiratory Rate Blood Pressure Pulse Oximetry Intake & Output 04/30/18 05/01/18 05/01/18 18:59 06:59 18:59 Intake Total 2567.5 / 2567.5 2257.5 / 2257.5 257.5 / 257.5 Output Total 1300 / 1300 2400 / 2400 Balance 1267.5 / 1267.5 -142.5 / -142.5 257.5 / 257.5 Weight 64.3 kg Intake: IV 1607.5 / 1607.5 1257.5 / 1257.5 257.5 / 257.5 NS Inj 1,000 ML @ 100 mls/hr IV 1000 / 1000 1000 / 1000 .CONT .Q10H DONG Rx#:[id number] Levaquin 500 mg Premix Inj 500 100 / 100 mg In 100 ml @ 100 mls/hr IV. SIG Q24H DONG Rx#:[id number] Levophed-Dextrose 4 mg/250 ml 250 / 250 Drip 4 mg In 250 ml @ 2 MCG/MIN 7.5 mls/hr IV.SIG TITRATE PRN Rx#:[id number] Vancomycin Inj 750 MG In NS Inj 257.5 / 257.5 257.5 / 257.5 257.5 / 257.5 250 ML @ 250 mls/hr IV.SIG Q12H DONG Rx#:[id number] Oral 960 / 960 Other 1000 / 1000 Output: Urine 1300 / 1300 2400 / 2400 Other: Other Intake Source Saline Solution # Voids 2 Date of Last Bowel Movement 04/29/18 04/29/18 Narrative: GENERAL: NAD, A&Ox3 HEAD: Normocephalic. NECK: Supple, trachea midline. No lymphadenopathy. EYES: No scleral icterus. No injection or drainage. CARDIOVASCULAR: Regular rate and rhythm without murmurs, gallops, or rubs. RESPIRATORY: Breath sounds equal bilaterally. No accessory muscle use. GASTROINTESTINAL: Abdomen soft, non-tender, nondistended. MUSCULOSKELETAL: No cyanosis, or edema. Bilateral costovertebral angle tenderness. SKIN: Warm and dry. NEURO: No focal neurological deficits. Results Labs CBC & Chem 7: 05/01/18 08:15 05/01/18 08:15 Labs: Microbiology 04/29/18 18:04 Blood - Peripheral Aerobic Blood Culture - Preliminary No growth in 2 days 04/29/18 18:04 Blood - Peripheral Anaerobic Blood Culture - Preliminary No growth in 2 days 04/29/18 17:55 Blood - Peripheral Aerobic Blood Culture - Preliminary No growth in 2 days 04/29/18 17:55 Blood - Peripheral Anaerobic Blood Culture - Preliminary No growth in 2 days 04/29/18 16:35 Clean Catch Urine Urine Culture - Final Escherichia coli Imaging Imaging: Impressions Abdomen X-Ray 05/01/18 00:00 CONCLUSION: Benign-appearing abdomen. Patient's known renal and distal left ureteral stones are not well visualized radiographically. Abdomen/Bladder Ultrasound 05/01/18 00:00 CONCLUSION: 1. Nonobstructing right lower pole stone. 2. Mild left hydronephrosis suggesting the partially obstructing stone of the distal left ureter persists. Bilateral ureteral jets are demonstrated Assessment and Plan Plan 37-year-old female admitted secondary to pyelonephritis with septic shock Continue to attempt weaning pressors. Follow clinically for improvement in pain , costovertebral angle tenderness, and dysuria. Continue antibiotics. Imitrex provided for headache. Ambien provided for insomnia. Xanax provided for anxiety. Septic shock Sepsis Tachycardia Fever Leukocytosis Hypotension Admit to ICU Levophed to maintain blood pressures Follow vital signs closely Following telemetry IV hydration Wean pressors as tolerated Pyelonephritis Left-sided ureterolith 2 mm stone Flomax Stone likely to pass Repeat imaging Follow clinically Treat infection to decrease inflammation Consider urology consult if repeat imaging shows no movement of stone Asthma As needed albuterol Continue Symbicort Anxiety Xanax as needed DVT prophylaxis SCDs Progress Note: Quality VTE Deep Vein Thrombosis/Pulmonary Embolism Present on Admission: No
[2018-05-01] MEDS: Levofloxacin 500 mg Premix Inj 500 MG/100 ML PIGGYBACK IV.SIG SCH (17:34)
[2018-05-01] MEDS: Vancomycin Inj 1,000 MG in Sodium Chlor 0.9% Inj 250 ML IV.SIG SCH (20:03)
[2018-05-01 21:14] VITALS: O2SAT 94
[2018-05-01] MEDS: Ibuprofen 400 MG Tablet PO PRN (22:01)
[2018-05-02 05:11] LABS: Baso # (Auto) 0.1 th/mm3 (0.0-0.2); Baso % (Auto) 1.3 % (0.0-2.0); Eos # (Auto) 0.3 th/mm3 (0.0-0.4); Eos % (Auto) 4.7 % (0.0-4.0); Hematocrit 30.1 % (35.0-46.0); Hemoglobin 10.1 gm/dL (11.6-15.3); Lymph # (Auto) 2.8 th/mm3 (1.0-4.8); Lymph % (Auto) 39.9 % (9.0-44.0); Mean Corpuscular HGB Conc 33.5 % (32.0-36.0); Mean Corpuscular Hemoglobin 29.5 pg (27.0-34.0); Mean Corpuscular Volume 88.2 fL (80.0-100.0); Mean Platelet Volume 7.8 fL (7.0-11.0); Mono # (Auto) 0.5 th/mm3 (0.0-0.9); Mono % (Auto) 7.6 % (0.0-8.0); Neut # (Auto) 3.2 th/mm3 (1.8-7.7); Neut % (Auto) 46.5 % (16.0-70.0); Platelet Count 281 th/mm3 (150-450); Red Blood Count 3.41 mil/mm3 (4.00-5.30); Red Cell Distribution Width 12.4 % (11.6-17.2); White Blood Count 6.9 th/mm3 (4.0-11.0)
[2018-05-02 05:17] LABS: Chloride 110 meq/L (98-107); Potassium 3.6 meq/L (3.5-5.1); Sodium 140 meq/L (136-145)
[2018-05-02 05:21] LABS: Anion Gap 6 meq/L (5-15); Blood Urea Nitrogen 4 mg/dL (7-18); Calcium 7.5 mg/dL (8.5-10.1); Carbon Dioxide 24.3 meq/L (21.0-32.0); Glucose,Random 92 mg/dL (74-106)
[2018-05-02 05:24] LABS: Alanine Aminotransferase 60 U/L (10-53); Aspartate Aminotransferase 21 U/L (15-37); Glomerular Filtration Rate Greater Than 89 mL/min (>89)
[2018-05-02 05:26] LABS: Total Protein 5.3 g/dL (6.4-8.2)
[2018-05-02 05:27] LABS: Alkaline Phosphatase 100 U/L (45-117)
[2018-05-02 06:22] VITALS: TEMP 98
[2018-05-02] MEDS: Sod Chloride 0.9% Inj 1,000 ML IV.CONT SCH (06:39)
[2018-05-02] MEDS: Vancomycin Inj 1,000 MG in Sodium Chlor 0.9% Inj 250 ML IV.SIG SCH (08:50)
[2018-05-02] MEDS: Lactobacillus Acidophilus/L. Spores Tablet PO SCH ×2 (08:51→12:57)
[2018-05-02] MEDS: Ibuprofen 400 MG Tablet PO PRN (09:09)
--- NOTE | 2018-05-02 12:23 | P.PNIM ---
Physical Exam Vital signs: Vital Signs 05/01/18 13:00 05/01/18 14:00 05/01/18 14:38 Temperature Pulse Rate 92 H 88 Respiratory Rate 20 17 19 Blood Pressure 91/66 L 88/55 L Pulse Oximetry 05/01/18 15:00 05/01/18 16:00 05/01/18 17:00 Temperature 100.5 F H Pulse Rate 78 80 88 Respiratory Rate 19 20 22 Blood Pressure 109/79 104/73 110/69 Pulse Oximetry 96 05/01/18 18:00 05/01/18 19:15 05/01/18 19:51 Temperature 99.5 F Pulse Rate 82 98 H 96 H Respiratory Rate 25 H 23 28 H Blood Pressure 115/75 102/60 92/60 L Pulse Oximetry 93 L 05/01/18 20:00 05/01/18 20:55 05/01/18 21:00 Temperature Pulse Rate 105 H 86 84 Respiratory Rate 19 19 Blood Pressure 90/66 L 99/65 L Pulse Oximetry 94 L 05/01/18 21:45 05/01/18 21:58 05/01/18 22:00 Temperature Pulse Rate 80 87 Respiratory Rate 20 Blood Pressure 96/62 L 89/60 L Pulse Oximetry 05/01/18 22:45 05/01/18 23:02 05/01/18 23:15 Temperature Pulse Rate 80 80 76 Respiratory Rate 22 18 18 Blood Pressure 97/67 L 83/62 L 91/62 L Pulse Oximetry 05/02/18 00:00 05/02/18 01:00 05/02/18 02:00 Temperature 99.1 F Pulse Rate 66 64 62 Respiratory Rate 18 16 25 H Blood Pressure 92/65 L 86/62 L 91/65 L Pulse Oximetry 05/02/18 03:00 05/02/18 03:45 05/02/18 04:00 Temperature 98 F Pulse Rate 64 72 70 Respiratory Rate 17 23 21 Blood Pressure 92/60 L 98/67 L Pulse Oximetry 05/02/18 05:00 05/02/18 06:00 05/02/18 06:03 Temperature Pulse Rate 62 62 58 L Respiratory Rate 16 17 Blood Pressure 87/58 L 104/72 Pulse Oximetry 05/02/18 07:00 05/02/18 08:00 05/02/18 09:00 Temperature Pulse Rate 64 72 76 Respiratory Rate 25 H 16 22 Blood Pressure 98/57 L 101/67 105/74 Pulse Oximetry 05/02/18 10:00 Temperature Pulse Rate 80 Respiratory Rate 20 Blood Pressure 99/64 L Pulse Oximetry Intake & Output 05/01/18 05/02/18 05/02/18 18:59 06:59 18:59 Intake Total 2298.5 / 2298.5 1730 / 1730 Output Total 1999 2450 / 2450 Balance 298.5 / 298.5 -720 / -720 Weight 59.1 kg Intake: IV 1357.5 / 1357.5 1250 / 1250 NS Inj 1,000 ML @ 100 mls/hr IV 1000 / 1000 1000 / 1000 .CONT .Q10H DONG Rx#:[id number] Levaquin 500 mg Premix Inj 500 100 / 100 mg In 100 ml @ 100 mls/hr IV. SIG Q24H DONG Rx#:[id number] Vancomycin Inj 1,000 MG In NS 250 / 250 Inj 250 ML @ 250 mls/hr IV.SIG Q12H DONG Rx#:[id number] Vancomycin Inj 750 MG In NS Inj 257.5 / 257.5 250 ML @ 250 mls/hr IV.SIG Q12H DONG Rx#:[id number] Oral 941 / 941 480 / 480 Output: Urine 1999 2450 / 2450 Other: # Voids 2 1 Date of Last Bowel Movement 05/02/18 # Bowel Movements 0 0 Narrative: GENERAL: NAD, A&Ox3 HEAD: Normocephalic. NECK: Supple, trachea midline. No lymphadenopathy. EYES: No scleral icterus. No injection or drainage. CARDIOVASCULAR: Regular rate and rhythm without murmurs, gallops, or rubs. RESPIRATORY: Breath sounds equal bilaterally. No accessory muscle use. GASTROINTESTINAL: Abdomen soft, non-tender, nondistended. MUSCULOSKELETAL: No cyanosis, or edema. Bilateral costovertebral angle tenderness. SKIN: Warm and dry. NEURO: No focal neurological deficits. Results Labs CBC & Chem 7: 05/02/18 04:55 05/02/18 04:55 Labs: Microbiology 04/29/18 18:04 Blood - Peripheral Aerobic Blood Culture - Preliminary No growth in 3 days 04/29/18 18:04 Blood - Peripheral Anaerobic Blood Culture - Preliminary No growth in 3 days 04/29/18 17:55 Blood - Peripheral Aerobic Blood Culture - Preliminary No growth in 3 days 04/29/18 17:55 Blood - Peripheral Anaerobic Blood Culture - Preliminary No growth in 3 days 04/29/18 16:35 Clean Catch Urine Urine Culture - Final Escherichia coli Assessment and Plan Plan 37-year-old female admitted secondary to pyelonephritis with septic shock: Septic shock -Met criteria with tachycardiac, fever, leukocytosis -Was initially admitted to the ICU with hypotension. -Levophed was initially started, has been weaned off. -Follow vital signs closely, continue telemetry. -Continue IVF to ensure hydration. Pyelonephritis -Left-sided ureterolith, repeat imaging showing persistent left hydronephrosis. Patient still complaints of CVA tenderness and dysuria. -Does say she passed a stone yesterday morning. -Continue Flomax. -Urology has been consulted for further input, awaiting recommendations. -Continue to follow clinically. Pain medications as needed. -Treat infection to decrease inflammation, continue antibiotics. Vanco IV. Asthma -As needed albuterol -Continue Symbicort Anxiety: Xanax as needed. Insomnia: Ambien. DVT prophylaxis: SCDs Progress Note: Quality VTE Deep Vein Thrombosis/Pulmonary Embolism Present on Admission: No
[2018-05-02] MEDS ORDERED: Sodium Chlor 0.9% Inj 500 ML IV.SIG SCH (12:43)
--- NOTE | 2018-05-02 13:05 | P.DS ---
DS: Providers Date of admission: 04/29/18 17:37 Primary care physician: Caleb Perez MD Brief History from admission: Mrs. Martinez is a 37-year-old female. She came into the hospital secondary to dysuria and flank pain. Findings at time of admit are leukocytosis, tachycardia, hypotension, and fever. She has a retained 2 mm kidney stone in the left ureter. Additionally she has evidence for pyelonephritis. Septic criteria are present and patient meets criteria for septic shock. Pressors are needed to maintain patient's blood pressures. No other complaints. She does not have recurrent problems with urinary tract infections. She does have a history of kidney stone. Other medical history includes anxiety and asthma. DS: Summary This is a 37-year-old female admitted secondary to pyelonephritis with septic shock. Patient met septic shock criteria with tachycardia, fever and leukocytosis. Was initially admitted to the ICU with hypotension. Levophed was initially started and has been weaned off with blood pressure stable. Patient was continued on cardiac telemetry and close monitoring during her hospitalization. IV fluid was continued to ensure hydration. Patient did present with pyelonephritis as well with imaging showing left-sided pyelonephritis she did present with CVA tenderness and dysuria. She did pass a stone during hospitalization. Was started on Flomax and urology was consulted, no further recommendations were noted. Patient was also treated for UTI with IV antibiotics and transition over to p.o. on discharge. Patient has a history of asthma continue albuterol and Symbicort. She also has a history of anxiety and insomnia which were controlled with Xanax and Ambien as needed during hospitalization. Patient stable on day of discharge. Encouraged follow-up with PCP. Strain urine. Continue antibiotics to completion. Diet as tolerated. Activity as tolerated. Patient stable on discharge home. Time Spent with Patient Total time spent providing and/or coordinating discharge services: Greater than 30 minutes Quality: VTE Deep Vein Thrombosis/Pulmonary Embolism Present on Admission: No Exam Narrative Exam Narrative: Narrative: GENERAL: NAD, A&Ox3 HEAD: Normocephalic. NECK: Supple, trachea midline. No lymphadenopathy. EYES: No scleral icterus. No injection or drainage. CARDIOVASCULAR: Regular rate and rhythm without murmurs, gallops, or rubs. RESPIRATORY: Breath sounds equal bilaterally. No accessory muscle use. GASTROINTESTINAL: Abdomen soft, non-tender, nondistended. MUSCULOSKELETAL: No cyanosis, or edema. Bilateral costovertebral angle tenderness. SKIN: Warm and dry. NEURO: No focal neurological deficits. Results Labs on day of discharge: Labs from last 24 hours 05/02/18 05/02/18 04:55 04:55 CBC w Diff Auto diff final WBC 6.9 RBC 3.41 L Hgb 10.1 L Hct 30.1 L MCV 88.2 MCH 29.5 MCHC 33.5 RDW 12.4 Plt Count 281 MPV 7.8 Neut % (Auto) 46.5 Lymph % (Auto) 39.9 Lamar % (Auto) 7.6 Eos % (Auto) 4.7 H Baso % (Auto) 1.3 Neut # (Auto) 3.2 Lymph # (Auto) 2.8 Lamar # (Auto) 0.5 Eos # (Auto) 0.3 Baso # (Auto) 0.1 WBC Differential . Differential Comment . Sodium 140 Potassium 3.6 Chloride 110 H Carbon Dioxide 24.3 Anion Gap 6 BUN 4 L Creatinine 0.62 Estimated GFR Greater than 89 Random Glucose 92 Calcium 7.5 L Total Bilirubin 0.3 AST 21 ALT 60 H Alkaline Phosphatase 100 Total Protein 5.3 L Albumin 2.0 L Preliminary micro results at discharge 04/29/18 18:04 Aerobic Blood Culture - Preliminary Blood - Peripheral No growth in 3 days Anaerobic Blood Culture - Preliminary No growth in 3 days 04/29/18 17:55 Aerobic Blood Culture - Preliminary Blood - Peripheral No growth in 3 days Anaerobic Blood Culture - Preliminary No growth in 3 days Impressions ITS Impressions Abdomen/Pelvis CT 04/29/18 16:21 CONCLUSION: 1. Mild obstructive uropathy on the left leading to a distal left ureteral calculus measuring 2 mm. 2. Several punctate nonobstructing right-sided renal calculi. Abdomen X-Ray 05/01/18 00:00 CONCLUSION: Benign-appearing abdomen. Patient's known renal and distal left ureteral stones are not well visualized radiographically. Abdomen/Bladder Ultrasound 05/01/18 00:00 CONCLUSION: 1. Nonobstructing right lower pole stone. 2. Mild left hydronephrosis suggesting the partially obstructing stone of the distal left ureter persists. Bilateral ureteral jets are demonstrated Discharge Plan Discharge Disposition Patient Disposition: 01 Discharge Home Discharge Condition Condition: Stable Discharge Order Discharge Orders: Discharge Order (Routine); Ordered 05/02/18 Ordered By: Altagracia Das Discharge Details Anticipated Discharge Date: 05/02/18 Discharge Comment: OK TO DC after 3PM if BP improves with bolus. Have patient strain urine. Follow up with PCP. If no improvement, will see urology outpt as referral from PCP. Physicians Team ED Provider: Yovanny Oliveros Primary Care Provider: Caleb Perze Attending Provider: Remberto Tavera Rxs /Orders / Referrals /Forms Prescriptions: New cefuroxime axetil 250 mg tablet 250 mg PO BID 10 Days Qty: 20 RF: 0 Continue albuterol sulfate 1.25 mg/3 mL Solution For Nebulization 1.25 mg INHALATION Q4-6H PRN (Reason: Shortness Of Breath) RF: 0 alprazolam [Xanax] 0.25 mg Tablet 0.25 mg PO HS RF: 0 albuterol sulfate 90 mcg/actuation Hfa Aerosol Inhaler 1 puff INHALATION Q4-6H PRN (Reason: Shortness Of Breath) RF: 0 budesonide-formoterol [Symbicort] 80-4.5 mcg/actuation Hfa Aerosol Inhaler 2 puff INHALATION Q12H PRN (Reason: Shortness Of Breath) RF: 0 Referrals: Caleb Perez MD [Primary Care Provider] - 05/09/18 12:00 am Stand Alone Forms: Work Release/Restrictions Discharge Instructions Patient Printed Instructions: Cefuroxime (By mouth), Kidney Stones (DC) Status ED Status: Left Department
[2018-05-02 15:06] VITALS: BP 101/73; PULSE 84; RESP 27
[2018-05-03] MEDS ORDERED: Pharmacy Ordered Lab Info OTHER ONE (08:45)
== END 2018-05-02 15:10 | disposition home or self-care (01) | DRG 871 ==
LOC: PHED 15:50 → PHEDA 17:37 → PHICU 19:25
PROVIDERS: ADMIT Hospitalist; ATTEND Hospitalist
CPT/HCPCS: 74000; 74018; 74176; 76775; 80053; 80202; 81001; 83605; 83690; 84703; 85025; 87040; 87077; 87086; 87186; 90761; 90774; 90775; 96361; 96374; 96375; 99285; C8952; J1170; J1885; J1956; J2270; J2405; J3370; J7030; J7040; J7050